=== PATIENT | male | born 1985 | race Caucasian/White ===

== ENCOUNTER 2023-04-11 18:53 | Emergency (ER) | payer MEDICARE, MEDICAID ==
[2023-04-11] MEDS ORDERED: Meclizine 25 MG Tab PO ONE (19:11)
[2023-04-11] MEDS ORDERED: LORazepam 2 MG/ML SDV IVPUSH ONE (19:11)
[2023-04-11] MEDS ORDERED: Sodium Chloride 0.9% 10 ML Syringe FLUSH PRN (19:11)
[2023-04-11] MEDS ORDERED: Ondansetron 4 MG/2 ML SDV IVPUSH ONE (19:13)
[2023-04-11] MEDS ORDERED: Dextrose 5%-0.9% NaCl 1,000 ML IV SCH (19:15)
[2023-04-11 19:29] LABS: BASOPHILS ABSOLUTE AUTO 0.1 x10-3/uL (0.0-0.3); BASOPHILS PERCENT AUTO 0.7 % (0.3-3.8); EOSINOPHILS ABSOLUTE AUTO 0.4 x10-3/uL (0.0-0.6); HEMATOCRIT 40.5 % (38.3-50.1); HEMOGLOBIN 13.8 g/dL (12.9-17.7); LYMPHOCYTES ABSOLUTE AUTO 2.2 x10-3/uL (0.5-4.5); LYMPHOCYTES PERCENT AUTO 24.3 % (15.8-45.3); MEAN CORPUSCULAR HEMOGLOBIN 30.7 pg (27.0-33.3); MEAN CORPUSCULAR HGB CONC 33.9 g/dL (28.7-35.3); MEAN CORPUSCULAR VOLUME 90.5 fL (80.8-98.7); MEAN PLATELET VOLUME 8.6 fL (6.7-11.0); MONOCYTES ABSOLUTE AUTO 0.9 x10-3/uL (0.0-1.2); MONOCYTES PERCENT AUTO 9.9 % (5.5-15.2); NEUTROPHILS ABSOLUTE AUTO 5.6 x10-3/uL (1.7-6.9); NEUTROPHILS PERCENT AUTO 61.1 % (40.3-71.8); PLATELET COUNT,PLT 249 x10(3)uL (117-477); RED BLOOD CELL COUNT 4.48 x10(6)uL (3.90-5.90); RED CELL DISTRIBUTION WIDTH 14.3 % (12.4-15.0); WHITE BLOOD CELL COUNT,WBC 9.1 x10-3/uL (3.2-10.1)
[2023-04-11 19:35] LABS: BLOOD UREA NITROGEN,BUN 24 mg/dL (7-18); CALCIUM 8.8 mg/dL (8.6-10.2); CARBON DIOXIDE,CO2 31 mmol/L (21-32); CHLORIDE,CL 100 mmol/L (100-110); ESTIMATED GFR 99 mL/min (>60); GLUCOSE RANDOM 103 mg/dL (80-116); SODIUM,NA 140 mmol/L (135-145)
[2023-04-11] MEDS ORDERED: Potassium Chloride 20 MEQ Tab.ER PO ONE (20:38)
== END 2023-04-11 21:39 | disposition home or self-care (01) ==
LOC: FB.ED 18:53
DX: H81.10 Benign paroxysmal vertigo, unspecified ear (principal); E87.6 Hypokalemia
CPT/HCPCS: 80048; 85025; 96361; 96374; 96375; 99284; A9270; J2060; J2405